=== PATIENT | female | born 1930 | race Two or more races ===

== ENCOUNTER 2017-02-24 13:30 | Emergency (ER) | payer OTHER ==
[2017-02-24 13:45] VITALS: BP 164/71; PULSE 70; TEMP 99.1; BMI 28.3
--- NOTE | 2017-02-24 14:45 | PDOC ---
*Physical Exam - Vital Signs Last Vital Signs Temp Pulse Resp BP Pulse Ox 99.1 F 70 18 164/71 98 02/24/17 13:42 02/24/17 13:42 02/24/17 13:42 02/24/17 13:42 02/24/17 13:42 - Physical Exam Comments: 02/24/17 14:40 vital signs stable. Agree with exam as outlined Right lower extremity: Bruising and swelling from the knee and distally, nontender hematoma to the medial aspect of the proximal right lower leg, full range of motion with full strength of the hip/knee/ankle/toes. Neurovascularly intact distally with 2+ DP pulse. Medical Decision Making - Medical Decision Making 02/24/17 14:41 Patient seen and evaluated with the nurse practitioner. I agree with the overall evaluation, assessment, and management with the following summary of visit: 86-year-old female with mechanical fall sent in by Dr. Tee for further evaluation of right leg bruising and swelling. Neurovascularly intact, rule out DVT and/or fracture. Right knee x-ray and right lower extremity Doppler wrist x-ray Check INR and CBC Dispo accordingly *DC/Admit/Observation/Transfer Diagnosis at time of Disposition: Accidental fall Qualifiers: Encounter type: initial encounter Qualified Code(s): W19.XXXA - Unspecified fall, initial encounter Right leg injury Qualifiers: Encounter type: initial encounter Qualified Code(s): S89.91XA - Unspecified injury of right lower leg, initial encounter - Discharge Dispostion Condition at time of disposition: Fair
--- NOTE | 2017-02-24 15:54 | PDOC ---
History of Present Illness - General Chief Complaint: Injury Stated Complaint: INJURY (PCP SENT) Time Seen by Provider: 02/24/17 13:56 History Source: Patient Exam Limitations: No Limitations - History of Present Illness Initial Comments: 02/24/17 15:49 86-year-old female brought in by family for evaluation of large hematoma to the right lower leg. as per patient she was walking last week when she had tripped on her own feet causing her to fall forward landing on her right knee. Patient also states later on her left wrist but has minimal discomfort with movement of the left wrist and hand. Patient was also seen by his her PCP today who was concerned about the size of hematoma and the fact the patient is on Coumadin. Patient has no complaints of discomfort while resting but states pain to the right anterior lower leg with movement. Patient denies previous injury to the affected area. Timing/Duration: 1 week Severity: moderate Associated Symptoms: reports: denies symptoms Past History - Travel Traveled outside of the country in the last 30 days: No Close contact w/someone who was outside of country & ill: No - Past Medical History Allergies/Adverse Reactions: Allergies Allergy/AdvReac Type Severity Reaction Status Date / Time No Known Allergies Allergy Verified 02/24/17 13:42 Home Medications: Ambulatory Orders Memantine HCl [Namenda -] 5 mg PO DAILY #0 tab 03/21/13 Metoprolol Tartrate [Lopressor -] 25 mg PO DAILY #0 tab 03/21/13 Verapamil HCl [Verapamil ER] 120 mg PO DAILY #0 cap24h.pel 03/21/13 Donepezil HCl 5 mg PO DAILY 02/24/17 Warfarin Sodium 3 mg PO ASDIR 02/24/17 Anemia: No Asthma: No Cancer: No Cardiac Disorders: Yes (ATRIAL FIBRILLATION) CVA: No COPD: No Dementia: Yes Diabetes: No GI Disorders: Yes (GASTRITIS) Disorders: No HTN: Yes Hypercholesterolemia: Yes Liver Disease: No Seizures: No Thyroid Disease: No - Surgical History Abdominal Surgery: Yes (HERNIA REPAIR) Appendectomy: Yes Cardiac Surgery: No Cholecystectomy: Yes Lung Surgery: No Neurologic Surgery: No Orthopedic Surgery: Yes (LEFT HIP REPLACEMENT) - Psycho/Social/Smoking Cessation Hx Anxiety: No Suicidal Ideation: No Smoking Status: No Smoking History: Never smoked Have you smoked in the past 12 months: No Number of Cigarettes Smoked Daily: 0 Hx Alcohol Use: No Drug/Substance Use Hx: No Substance Use Type: None Hx Substance Use Treatment: No Patient Lives Alone: No Lives with/in: family Review of Systems - Review of Systems Able to Perform ROS?: Yes Constitutional: No: Symptoms Reported HEENTM: No: Symptoms Reported Respiratory: No: Symptoms reported Cardiac (ROS): No: Symptoms Reported ABD/GI: No: Symptoms Reported : No: Symptoms Reported Musculoskeletal: Yes: Muscle Pain Integumentary: Yes: Bruising Neurological: No: Symptoms reported Hematologic/Lymphatic: Yes: Easy Bleeding (on coumadin) *Physical Exam - Vital Signs Last Vital Signs Temp Pulse Resp BP Pulse Ox 99.1 F 70 18 164/71 98 02/24/17 13:42 02/24/17 13:42 02/24/17 13:42 02/24/17 13:42 02/24/17 13:42 - Physical Exam General Appearance: Yes: Nourished, Appropriately Dressed. No: Apparent Distress HEENT: negative: Pale Conjunctivae Neck: positive: Supple Respiratory/Chest: positive: Lungs Clear, Normal Breath Sounds. negative: Respiratory Distress, Accessory Muscle Use Cardiovascular: positive: Regular Rhythm, Regular Rate. negative: Murmur Gastrointestinal/Abdominal: positive: Soft. negative: Tenderness Musculoskeletal: negative: Normal Inspection Extremity: positive: Normal Capillary Refill, Tender (to base of left 2nd metacarpal), Pedal Edema (2+ pitting to rle) Integumentary: positive: Ecchymosis (to lower anterior lower extremity beginning at right patella extending to right malleolus region) Neurologic: positive: Motor Strength 5/5 (full mobility of right knee and left wrist ) ED Treatment Course - RADIOLOGY Radiology Studies Ordered: Category Date Time Status KNEE 3 POS-RIGHT [RAD] Stat Radiology 02/24/17 15:03 Ordered WRIST W/HAND-LEFT* [RAD] Stat Radiology 02/24/17 15:03 Ordered DUPLEX VASCUL US-1 LEG [US] Stat Ultrasound 02/24/17 15:03 Ordered Medical Decision Making - Medical Decision Making 02/24/17 15:07 Patient status post mechanical fall week who now was concerning hematoma to the right anterior lower extremity patient on exam had normal 2 point discrimination along with no sensory changes distally. Patient also had 2+ pedal pulse. Patient ordered for x-ray of the right knee along with ultrasound the right lower extremity, left hand x-ray, and labs including PT/INR and CBC since she is currently on Coumadin 02/24/17 17:59 Laboratory Tests 02/24/17 15:09 INR 3.42 H Ultrasound shows no evidence of DVT in the right lower extremity. left hand shows no acute fracture. Right knee shows no sign of dislocation or fracture. Patient will be discharged home with supportive care instructions including utilizing heat to the affected area with mild massage and compression stockings. *DC/Admit/Observation/Transfer Diagnosis at time of Disposition: Accidental fall Qualifiers: Encounter type: initial encounter Qualified Code(s): W19.XXXA - Unspecified fall, initial encounter Right leg injury Qualifiers: Encounter type: initial encounter Qualified Code(s): S89.91XA - Unspecified injury of right lower leg, initial encounter Traumatic hematoma of right lower leg Qualifiers: Encounter type: initial encounter Qualified Code(s): S80.11XA - Contusion of right lower leg, initial encounter - Discharge Dispostion Disposition: HOME Condition at time of disposition: Good - Referrals Referrals: Jennifer Marcos MD [Primary Care Provider] - - Patient Instructions Printed Discharge Instructions: DI for Hematoma (Bruise) Additional Instructions: At this time I do recommend applying warm heat to the affected area and providing soft massaging to decrease the swelling and the hematoma. I also do recommend purchasing antiembolic stockings to decrease swelling and provide comfort. - Post Discharge Activity
[2017-02-24 16:22] LABS: INR 3.42 (0.82-1.09); PROTHROMBIN TIME (PATIENT) 38.6 SEC (9.98-11.88)
== END 2017-02-24 18:41 | disposition home or self-care (01) ==
LOC: JER 13:30 → SUPCPDRO 13:30 → JER 18:41
DX: S80.11XA Contusion of right lower leg, initial encounter (principal); W01.0XXA Fall on same level from slipping, tripping and stumbling without subsequent striking against object, initial encounter; Y93.89 Activity, other specified; Y92.018 Other place in single-family (private) house as the place of occurrence of the external cause; I48.91 Unspecified atrial fibrillation; Z79.01 Long term (current) use of anticoagulants; I10 Essential (primary) hypertension; E78.00 Pure hypercholesterolemia, unspecified; E03.9 Hypothyroidism, unspecified
CPT/HCPCS: 36415; 73110-TC-LT; 73130-TC-LT; 73560-TC-RT; 85610; 93971-TC; 99282-25